=== PATIENT | female | born 1945 | race Caucasian/White ===

== ENCOUNTER 2016-08-24 05:15 | Day surgery (SDC) | payer MEDICARE, OTHER ==
[~2016-08-24 05:15] MED LIST: COMPAZINE10 MG PO; GLUCOPHAGE500 M3 PO; PAXIL10 M1 PO; XANAX0.5 M1 PO
== END 2016-08-24 13:00 ==
LOC: SRG 05:15 → SHSB 05:16 → ORW 07:27 → PACU 08:41 → SHSB 09:35
PROC: 0FT44ZZ Resection of Gallbladder, Percutaneous Endoscopic Approach (ICD-10-PCS; principal; 2016-08-24)
PROC: BF10YZZ Fluoroscopy of Bile Ducts using Other Contrast (ICD-10-PCS; 2016-08-24)
DX: K80.10 Calculus of gallbladder with chronic cholecystitis without obstruction (principal); I88.8 Other nonspecific lymphadenitis; K74.60 Unspecified cirrhosis of liver; E11.9 Type 2 diabetes mellitus without complications; J45.909 Unspecified asthma, uncomplicated; Z79.84 Long term (current) use of oral hypoglycemic drugs; Z79.899 Other long term (current) drug therapy; Z88.0 Allergy status to penicillin; Z88.1 Allergy status to other antibiotic agents; Z88.6 Allergy status to analgesic agent; Z91.041 Radiographic dye allergy status; Z91.048 Other nonmedicinal substance allergy status; Z85.3 Personal history of malignant neoplasm of breast; Z90.89 Acquired absence of other organs; Z98.890 Other specified postprocedural states
CPT/HCPCS: C1894; C9290; J0690; J2765; J7030; J7050; Q9966